=== PATIENT | male | born 1985 | race Caucasian/White ===

== ENCOUNTER → 2021-09-28 08:07 | Outpatient (CLI) | payer BC, SELFPAY ==
--- NOTE | ~2021-09-28 | XR_ITS ---
EXAMINATION: XR chest 2V 09/28/2021 08:23 INDICATION: Chest palpitations PROCEDURE: 2 view chest COMPARISON: No prior studies for comparison. FINDINGS: The lungs are clear. The cardiomediastinal silhouette is within normal limits. There are no pleural effusions. There is no pneumothorax suspected. IMPRESSION: 1: NO ACUTE CARDIOPULMONARY DISEASE. Reviewed, dictated and finalized at location A. LE END SEWER
== END ==
PROVIDERS: PCP Family Medicine; Visit Provider Family Medicine
DX: R00.2 Palpitations (principal)
CPT/HCPCS: 71046

== ENCOUNTER 2021-10-17 13:32 | Outpatient (CLI) | payer BC, SELFPAY ==
--- NOTE | 2021-10-22 16:01 | WPDHOLTEREM ---
Holter/Event Monitor Holter/Event Monitor Date of procedure: 10/17/21 Holter/Event Procedure: 48 Hr Holter Monitor Indications: Palpitations Conclusion: 1. 48 hour holter monitor on 10/17/21. 2. Underlying rhythm is sinus rhythm. HR range 45-182 bpm; average HR 79 bpm. HR at 182 bpm was at 11:37. 3. There are 5 premature supraventricular complexes. No supraventricular tachycardia. 4. There are 56 premature ventricular complexes. No ventricular tachycardia. 5. No sinoatrial or atrioventricular blocks. No significant pauses greater than 2 seconds. 6. No symptoms available for correlation.
== END 2021-10-17 13:33 | disposition home or self-care (01) ==
LOC: ANHCARD 13:34
PROVIDERS: PCP Family Medicine; Visit Provider Family Medicine
DX: R00.2 Palpitations (principal)
CPT/HCPCS: 93225; 93226

== ENCOUNTER 2023-09-12 10:32 | Emergency (ER) | payer BC, SELFPAY ==
--- NOTE | ~2023-09-12 | XR_ITS ---
EXAMINATION: XR chest 1V portable INDICATION: Possible impacted food bolus TECHNIQUE: Portable AP chest at 1136 hours COMPARISON: 09/28/2021 FINDINGS: The lungs are free of acute opacities. No pleural effusion or pneumothorax. The cardiomedia stinal silhouette is normal. No radiopaque foreign body is identified. IMPRESSION: 1. No acute cardiopulmonary abnormality. Reviewed, dictated and finalized at location F. MITER OPERATOR
[2023-09-12 11:10] VITALS: BP 135/84; PULSE 83; RESP 16; TEMP 36.8; O2SAT 100
[2023-09-12] MEDS: GLUCAGON FOR INJ 1 MG VIAL IM (11:31)
--- NOTE | 2023-09-12 11:46 | ED.SKABFB ---
HPI - Skin/Abscess/Foreign Bdy General Chief complaint: Skin/Abscess/Foreign Body Stated complaint: food bolus Time Seen by Provider: 09/12/23 11:16 Source: patient Mode of arrival: ambulatory Limitations: no limitations History of Present Illness HPI narrative: Patient is a 38-year-old male who presents the ED with report of food impaction. Patient reports he ate pork this morning around 10:00 a.m. and felt the piece of pork become stuck in his throat. He has been unable to keep down any food or drink afterwards. Reports painful swallowing. Denies difficulty breathing, hemoptysis, hematemesis. He does report history of similar symptoms 6 years ago and required scope for removal food impaction. Related Data Allergies Allergy/AdvReac Type Severity Reaction Status Date / Time tree nut Allergy Intermediate hives Verified 09/12/23 11:13 Review of Systems Review of Systems: CONSTITUTIONAL: Denies fever, chills, or sweats. ENT: See HPI CARDIOVASCULAR: Denies chest pain. RESPIRATORY: Denies dyspnea. GASTROINTESTINAL: See HPI All systems reviewed & are unremarkable except as noted in HPI and below PMFSH Past Medical History Medical History Kidney infarction L in 2017 Mild intermittent asthma without complication Physical exam, annual Thrombosis, artery, renal Family History Family History Mother Asthma Social History Social History Social History: Smoking status: Never smoker Second hand tobacco smoke exposure: No Alcohol intake: current Alcohol use details: Pt drinks on weekends only. Substance use: never Substance use type: does not use Lack of Transportation: No Lack of Food: Never True Current Housing: I Have Housing Concerned About Future Housing: No Difficulty Paying Gas/Electric Bills: No Difficulty Paying for Meds: No Currently Unemployed: No Education: Bachelor's Degree Difficulty w/ Childcare or Family Care: No Living arrangements: with family Occupation/Education: occupation Additional occupation/education comments: [employer] Gender identity (if verbalized by the patient): Male Sexual Orientation (if Verbalized by the Patient): Straight or Heterosexual Exam Narrative: GENERAL: Well appearing, well-nourished, non-toxic, in no acute distress. HEAD: Normocephalic, atraumatic. ENT: MMs moist. No drooling. No FB visible in oropharynx. RESPIRATORY: Airway patent, respirations nonlabored. Clear to auscultation bilaterally, no rales, rhonchi, wheezing. No distress or stridor. CARDIOVASCULAR: Regular rate and rhythm. MUSCULOSKELETAL: Moves all extremities. No gross deformities. SKIN: Warm, dry, normal color. NEURO: A&O X3. Speech clear. Cranial nerves II-XII grossly intact. Steady gait. No ataxic movements. PSYCHIATRIC: Appropriate mood and affect. Normal interaction. Course Vital Signs Vital signs: Vital Signs Temperature 98.3 F 09/12/23 11:10 Pulse Rate 83 09/12/23 11:10 Respiratory Rate 16 09/12/23 11:10 Blood Pressure 135/84 09/12/23 11:10 Pulse Oximetry 100 09/12/23 11:10 Temperature 98.1 F 09/12/23 13:33 Pulse Rate 79 09/12/23 13:33 Respiratory Rate 16 09/12/23 13:33 Blood Pressure 130/80 09/12/23 13:33 Pulse Oximetry 100 09/12/23 13:33 MDM - Skin/Abscess/Foreign Bdy MDM Narrative Medical decision making narrative: Patient presented to ED with food bolus. Vital stable upon arrival. No evidence of airway compromise or respiratory distress. Oxygen stable on room air. Chest x-ray clear. Glucagon given in the ED. Patient was able to drink an entire soda afterwards. He does feel like he may have passed the bolus, but complains of persistent discomfort in his throat and esophagus. Will try GI [place]ta[place]
[2023-09-12] MEDS: BELLADONNA ALK/PHENOB ELIX 10 ML, MAG HYDROX/ALUMINUM HYD/SIMETH 30 ML, LIDOCAINE HCL 2... PO (12:37)
[2023-09-12 13:33] VITALS: BP 130/80; PULSE 79; RESP 16; TEMP 36.7; O2SAT 100
== END 2023-09-12 13:35 | disposition home or self-care (01) ==
PROVIDERS: Emergency Provider Physician Assistant; PCP Family Medicine
DX: T18.128A Food in esophagus causing other injury, initial encounter (principal); J45.20 Mild intermittent asthma, uncomplicated; W44.F3XA Food entering into or through a natural orifice, initial encounter
CPT/HCPCS: 71045; 96372; 99283; A9270; J1610

== ENCOUNTER 2023-11-03 02:18 | Day surgery (SDC) | payer BC, SELFPAY ==
[2023-10-26 16:09] VITALS: BMI 28.0
--- NOTE | 2023-10-30 09:26 | SUR.PREOP ---
Patient called regarding upcoming procedure. Voicemail left regarding appointment times.
[2023-11-03 13:34] VITALS: BP 129/81; PULSE 74; RESP 14; TEMP 36.5; O2SAT 100
--- NOTE | 2023-11-03 13:43 | WPDANESEPPF ---
Anes - Initial Pre Proc Eval Procedure: Operation Date: 11/03/23 14:30 Proposed Procedures p Esophagogastroduodenoscopy - Ashok Clement MD Date/Time: 11/03/23 13:43 Surgeon: Ashok Clement MD Pre Op Diagnosis: Dysphagia, food in esophagus causing compression Patient Data Age: 38 Gender: M Height: 1.78 m Weight: 87.8 kg Last Vital Signs Temp 97.7 F 11/03/23 13:34 Pulse 74 11/03/23 13:34 Resp 14 11/03/23 13:34 BP 129/81 11/03/23 13:34 Pulse Ox 100 11/03/23 13:34 O2 Del Method Room Air 11/03/23 13:34 Allergies Allergy/AdvReac Type Severity Reaction Status Date / Time tree nut Allergy Severe Swelling Verified 11/03/23 13:33 of Lip/Tongue/Throat Home Medications Medication Instructions Recorded Confirmed Type propranolol 20 mg tablet 20 mg PO TID PRN palpitation #90 06/11/23 10/26/23 Rx tabs pantoprazole 20 mg tablet,delayed 20 mg PO HS 4 weeks #28 tabs 09/12/23 10/26/23 Rx release (Protonix) loratadine 10 mg tablet (Claritin) 10 mg PO DAILY 10/26/23 10/26/23 History Patient hx anesthesia problems: none Family hx anesthesia problems: none Results Review: All pre-operative results and documents have been reviewed as part of the pre-operative evaluation. [facility] Past Medical History Medical History (Updated 10/22/23 @ 14:16 by Letha Maharaj, ARACELI) Dysphagia Kidney infarction L in 2017 Mild intermittent asthma without complication Physical exam, annual Thrombosis, artery, renal Family History Family History Mother Asthma Social History Social History Social History: Smoking status: Never smoker Second hand tobacco smoke exposure: No Alcohol intake: current Drinks per week: 6 Alcohol use details: WINE/BEER/WHISKEY Substance use: never Substance use type: does not use Lack of Transportation: No Lack of Food: Never True Current Housing: I Have Housing Concerned About Future Housing: No Difficulty Paying Gas/Electric Bills: No Difficulty Paying for Meds: No Currently Unemployed: No Education: Bachelor's Degree Difficulty w/ Childcare or Family Care: No Living arrangements: with family Occupation/Education: occupation Additional occupation/education comments: [employer] Gender identity (if verbalized by the patient): Male Sexual Orientation (if Verbalized by the Patient): Straight or Heterosexual Spiritual care concerns: No Anes - Eval Final PreProcedure Day of Procedure 11/03/23 13:43 Patient weight: normal Heart: regular rate and rhythm Lungs: clear to auscultation Airway: Mallampati scale class II Neurological: alert and oriented Last oral intake: >/= 8 hours ASA classification: II Emergent: no Anesthetic plan: proceed Anesthesia type and monitoring: general GIVS and standard monitoring Results Review: All pre-operative results and documents have been reviewed as part of the pre-operative evaluation. Informed Consent: The patient's anesthetic plan and its attendant risks and benefits were discussed with the patient/family/POA. Questions were solicited and answers provided to the satisfaction of the patient/family/POA.
[2023-11-03] MEDS: LACTATED RINGERS 1,000 ML 150 ML IV CONT (13:44)
--- NOTE | 2023-11-03 14:02 | WPDHPUPDATE1 ---
History and Physical Update Update Date/Time: 11/03/23 14:02 History and Physical has been reviewed, including an updated exam of the patient. There are NO changes in the patient's condition. Risks, benefits, and alternatives have been discussed and questions answered. Patient agrees to proceed with procedure.
[2023-11-03 14:14] VITALS: BP 140/93; PULSE 76; RESP 14; O2SAT 100
[2023-11-03 14:24] VITALS: BP 120/81; PULSE 83; RESP 18; O2SAT 98
[2023-11-03 14:34] VITALS: BP 119/77; PULSE 75; RESP 24; O2SAT 100
== END 2023-11-03 14:49 | disposition home or self-care (01) ==
PROVIDERS: PCP Family Medicine; Visit Provider Internal Medicine Gastroenterology
PROC: 0DJ08ZZ Inspection of Upper Intestinal Tract, Via Natural or Artificial Opening Endoscopic (ICD-10-PCS; CPT 43235; principal; 2023-11-03 14:30)
DX: K20.0 Eosinophilic esophagitis (principal); J45.909 Unspecified asthma, uncomplicated; Z86.718 Personal history of other venous thrombosis and embolism; K31.89 Other diseases of stomach and duodenum
CPT/HCPCS: 43239; 88305; J2704; J7120